=== PATIENT | female | born 1930 | race Caucasian/White ===

== ENCOUNTER → 2017-01-04 | Outpatient (CLI) | payer OTHER ==
--- NOTE | 2017-01-05 09:22 | PCVCIMAG ---
APPROVED REPORT Study performed: 01/04/2017 08:50:35 EXAM: Comprehensive 2D, Doppler, and color-flow Echocardiogram 2D Dimensions IVSd: 10.69 (7-11mm)LVOT Diam: 21.03 (18-24mm) LVDd: 49.98 mm PWd: 9.60 (7-11mm)Ascending Ao: 35.42 (22-36mm) LVDs: 38.00 (25-40mm) Left Atrium: 47.12 (27-40mm) Aortic Root: 32.65 mm LV Single Plane 4CH: 51.37 % LV Single Plane 2CH: 67.23 %Renner's LVEF: 59.30 % Biplane EF: 59.7 % Volumes Left Atrial Volume (Systole) Single Plane 4CH: 83.18 mLSingle Plane 2CH: 48.50 mL Aortic Valve AoV Peak Miguel.: 2.10 m/s AO Peak Gr.: 0.01 mmHgLVOT Max P.98 mmHg AO Mean Gr.: 9.55 mmHg AO V2 Mean: 1.46 m/sLVOT Max V: 1.12 m/s AO V2 VTI: 51.39 cm ALIYA Vmax: 1.85 cm2 Mitral Valve E/A Ratio: 0.0 MV Decel. Time: 232.70 ms MV E Max Miguel.: 0.95 m/s MV A Miguel.: 0.00 m/s IVRT: 79.58 ms Pulmonary Vein P Vein S: 0.52 m/sP Vein A: 0.21 m/s P Vein D: 0.79 m/sP Vein A Dur.: 69.2 msec P Vein S/D Ratio: 0.66 Tricuspid Valve TR Peak Miguel.: 2.14 m/s TR Peak Gr.: 18.29 mmHg Left Ventricle The left ventricle is normal size. There is normal LV segmental wall motion. There is normal left ventricular wall thickness. Left ventricular systolic function is normal. The left ventricular ejection fraction is within the normal range. LVEF is 60-65%. The left ventricular diastolic function is normal. Right Ventricle The right ventricle is normal size. The right ventricular systolic function is normal. Atria The left atrium is mildly dilated. The right atrium size is normal. Aortic Valve The aortic valve is normal in structure. No aortic regurgitation is present. There is no aortic valvular stenosis. Mitral Valve The mitral valve leaflets are mildly thickened. Moderate mitral regurgitation. No evidence of mitral valve stenosis. Tricuspid Valve The tricuspid valve is normal in structure. There is mild tricuspid valve regurgitation noted. There is trace tricuspid regurgitation. The right atrial pressure is estimated at 27 mmHg. Pulmonic Valve The pulmonary valve is normal in structure. Mild pulmonic regurgitation. Great Vessels The aortic root is normal in size. IVC is normal in size and collapses with >50% inspiration Pericardium There is no pericardial effusion. <Conclusion> The left ventricle is normal size. There is normal left ventricular wall thickness. Left ventricular systolic function is normal. The left ventricular ejection fraction is within the normal range. LVEF is 60-65%. The right ventricle is normal size. The left atrium is mildly dilated. The aortic valve is normal in structure. The tricuspid valve is normal in structure. The aortic root is normal in size. There is no pericardial effusion.
== END | disposition home or self-care (01) ==
LOC: PCVCIMAG 08:32
PROVIDERS: ATTEND Internal Medicine Cardiovascular Disease
DX: I08.3 Combined rheumatic disorders of mitral, aortic and tricuspid valves (principal); I25.10 Atherosclerotic heart disease of native coronary artery without angina pectoris; I10 Essential (primary) hypertension; E78.00 Pure hypercholesterolemia, unspecified; I65.23 Occlusion and stenosis of bilateral carotid arteries; E11.9 Type 2 diabetes mellitus without complications; M47.9 Spondylosis, unspecified; Z79.899 Other long term (current) drug therapy; Z88.1 Allergy status to other antibiotic agents; Z88.5 Allergy status to narcotic agent; Z90.49 Acquired absence of other specified parts of digestive tract; Z95.1 Presence of aortocoronary bypass graft
CPT/HCPCS: 80061; 93005; 93306; G0463

== ENCOUNTER → 2017-06-28 | Outpatient (CLI) | payer OTHER | END | disposition home or self-care (01) | LOC: PCVCCLINIC 11:02 | PROVIDERS: ATTEND Internal Medicine Cardiovascular Disease | DX: I25.10 Atherosclerotic heart disease of native coronary artery without angina pectoris (principal); I10 Essential (primary) hypertension; R01.1 Cardiac murmur, unspecified; R06.00 Dyspnea, unspecified; I08.1 Rheumatic disorders of both mitral and tricuspid valves; E78.00 Pure hypercholesterolemia, unspecified; I27.29 Other secondary pulmonary hypertension; R00.1 Bradycardia, unspecified; I45.10 Unspecified right bundle-branch block; Z95.1 Presence of aortocoronary bypass graft; Z79.84 Long term (current) use of oral hypoglycemic drugs; Z79.899 Other long term (current) drug therapy | CPT/HCPCS: 80061; 93005; G0463 ==

== ENCOUNTER → 2017-10-05 | Outpatient (CLI) | payer OTHER | END | disposition home or self-care (01) | LOC: PCVCCLINIC 14:00 | DX: I25.10 Atherosclerotic heart disease of native coronary artery without angina pectoris (principal); I10 Essential (primary) hypertension; I08.1 Rheumatic disorders of both mitral and tricuspid valves; E78.00 Pure hypercholesterolemia, unspecified; E11.9 Type 2 diabetes mellitus without complications; R94.31 Abnormal electrocardiogram [ECG] [EKG]; Z95.1 Presence of aortocoronary bypass graft; Z79.84 Long term (current) use of oral hypoglycemic drugs | CPT/HCPCS: 93005; G0463 ==